=== PATIENT | female | born 1955 | race Hispanic/Latino ===

== ENCOUNTER 2024-10-20 12:38 | Inpatient (IN) | payer SELFPAY ==
[~2024-10-20] VITALS: Ht 165.1 cm; Wt 82.6 kg
[~2024-10-20 12:38] MED LIST: AMLODIPINE BESYL5 MG PO; AZITHROMYCIN500 MG PO; CONSTULOSE10 GM/15 M PO; MAPAP500 M1 PO; METFORMIN HCL500 MG PO; PROBIOTIC COMP1 EACH PO; SIMVASTATIN20 MG PO
[2024-10-20 12:45] VITALS: PULSE 75; RESP 16; TEMP 98.3
[2024-10-20] MEDS: SODIUM CHLORIDE 0.9% 1000ML 1,000 ML IV ONE (13:09)
[2024-10-20 13:21] LABS: BASOPHILS % 0.3 % (0.0-1.0); EOSINOPHILS % 2.6 % (0.0-6.0); LYMPHOCYTES % 22.2 % (18.0-39.1); MONOCYTES % 10.1 % (4.4-11.3); NEUTROPHILS % 64.5 % (38.7-80.0); RED CELL DISTRIBUTION WIDTH 13.1 % (11.7-14.4)
[2024-10-20 13:40] LABS: EST GLOMERULAR FILTRATION RATE 28.0 ML/MIN (>=60)
[2024-10-20 14:20] LABS: LEUKOCYTE ESTERASE ,URINE NEGATIVE (NEGATIVE); PROTEIN,URINE DIPSTICK NEGATIVE (NEGATIVE); URINE UROBILINOGEN 0.2 mg/dL (0.2 - 1)
[2024-10-20 14:34] LABS: EPITHELIAL CELLS,URINE MODERATE /LPF; WBC,URINE (MAN) 0-5 /HPF (0-5)
[2024-10-20 14:35] LABS: YEAST,URINE MODERATE
[2024-10-20] MEDS ORDERED: SODIUM CHLORIDE FLUSH 10 ML SYR INJ PRN (14:45)
[2024-10-20 16:21] VITALS: BP 124/53; PULSE 66; RESP 18; TEMP 97.6; O2SAT 96
[2024-10-20 16:25] VITALS: BP 124/53; PULSE 66; RESP 18; TEMP 97.6; O2SAT 96
[2024-10-20] MEDS ORDERED: LISINOPRIL10 MG PO (17:03)
[2024-10-20] MEDS ORDERED: PEPCID20 MG PO (17:03)
[2024-10-20 20:00] VITALS: BP 127/56; PULSE 74; RESP 18; TEMP 98.4; O2SAT 100
[2024-10-20 21:00] VITALS: BP 127/56; PULSE 74; RESP 18; TEMP 98.4; O2SAT 99
[2024-10-21] VITALS: BP 121/51; PULSE 75; RESP 18; TEMP 97.5; O2SAT 100
[2024-10-21] MEDS: ONDANSETRON HCL INJ 2MG/ML 2ML 2 MG/ML VIAL IV PRN (01:21)
[2024-10-21] MEDS: Morphine 2mg Syringe 2 MG/ML SYR IV PRN (01:22)
[2024-10-21 06:27] LABS: BASOPHILS % 0.5 % (0.0-1.0); EOSINOPHILS % 3.3 % (0.0-6.0); LYMPHOCYTES % 27.1 % (18.0-39.1); MONOCYTES % 11.4 % (4.4-11.3); NEUTROPHILS % 57.4 % (38.7-80.0); RED CELL DISTRIBUTION WIDTH 13.1 % (11.7-14.4)
[2024-10-21 06:38] VITALS: BP 125/57; PULSE 73; RESP 16; TEMP 97; O2SAT 100
[2024-10-21 07:04] LABS: EST GLOMERULAR FILTRATION RATE 31.0 ML/MIN (>=60)
[2024-10-21 08:28] VITALS: BP 127/91; PULSE 69; RESP 19; TEMP 98.8; O2SAT 99
== END 2024-10-21 11:20 | disposition home or self-care (01) | DRG 392 ==
LOC: ER 12:48 → ERHOLD 14:39 → MED/SURG3 15:55
PROVIDERS: ADMIT Internal Medicine; ATTEND Internal Medicine
DX: K57.32 Diverticulitis of large intestine without perforation or abscess without bleeding (principal); B37.49 Other urogenital candidiasis; E11.22 Type 2 diabetes mellitus with diabetic chronic kidney disease; E86.0 Dehydration; I12.9 Hypertensive chronic kidney disease with stage 1 through stage 4 chronic kidney disease, or unspecified chronic kidney disease; N18.9 Chronic kidney disease, unspecified; F32.A Depression, unspecified; Z79.84 Long term (current) use of oral hypoglycemic drugs; Z90.49 Acquired absence of other specified parts of digestive tract; Z88.1 Allergy status to other antibiotic agents; Z88.2 Allergy status to sulfonamides
CPT/HCPCS: 36415; 74176; 80053; 81001; 82948; 83690; 85025; 99284; J2270; J2405; J2543; J7030